=== PATIENT | female | born 1945 | race Hispanic/Latino ===

== ENCOUNTER 2017-07-02 06:44 | Day surgery (SDC) | payer MEDICARE, BC ==
[2017-06-29 09:02] VITALS: BMI 26.5
[2017-07-02] MEDS ORDERED: Hydrocortisone Sod Succ/PF 100 mg/2 ml Vial ONE (08:02)
--- NOTE | 2017-07-02 10:57 | OP ---
DATE OF PROCEDURE: 07/02/2017 PROCEDURE PERFORMED: Esophagogastroduodenoscopy with biopsy. PREOPERATIVE DIAGNOSIS: Chronic nausea and vomiting. PROCEDURE IN DETAIL: Informed consent was obtained from the patient. She was sedated with total int ravenous anesthesia. The bite block was placed and the endoscope was advanced easily to the second p ortion of the duodenum and retroflexion was performed in the stomach. The esophagus was normal. The GE junction was normal. The stomach had moderate erythematous gastritis in the antrum. Biopsies we re obtained to rule out H. pylori. The body and fundus of the stomach had a few small 4-5 mm polyps consistent with hyperplastic or fundic gland polyps. [employer] biopsies were obtained. The pyl orus was normal. Retroflexed views in the stomach were otherwise normal. The first and second porti ons of the duodenum were normal. Random biopsies were taken from the duodenum to rule out celiac dis ease. IMPRESSION: 1. Moderate erythematous gastritis in the antrum, biopsies taken to rule out Helicobacter pylori. 2. Few small benign appearing polyps in the body and fundus. Biopsies obtained. These are likely h yperplastic or fundic gland polyps, which should not require further intervention. 3. Otherwise normal esophagogastroduodenoscopy. Random duodenal biopsies taken to rule out celiac d isease. RECOMMENDATIONS: 1. Await histopathology. 2. Proton pump inhibitor daily. 3. Follow up in GI clinic in 4 weeks.
[2017-07-02] MEDS ORDERED: Propofol 200 MG/20 ML VIAL ONE (13:44)
== END 2017-07-02 09:53 | disposition home or self-care (01) ==
LOC: SDC 06:44
PROVIDERS: ATTEND Internal Medicine Gastroenterology
PROC: 0DB98ZX Excision of Duodenum, Via Natural or Artificial Opening Endoscopic, Diagnostic (ICD-10-PCS; principal; 2017-07-02)
PROC: 0DB68ZX Excision of Stomach, Via Natural or Artificial Opening Endoscopic, Diagnostic (ICD-10-PCS; 2017-07-02)
DX: K31.7 Polyp of stomach and duodenum (principal); K58.1 Irritable bowel syndrome with constipation; K21.9 Gastro-esophageal reflux disease without esophagitis; K22.4 Dyskinesia of esophagus; E11.9 Type 2 diabetes mellitus without complications; E78.00 Pure hypercholesterolemia, unspecified; F41.9 Anxiety disorder, unspecified; F32.9 Major depressive disorder, single episode, unspecified; I25.10 Atherosclerotic heart disease of native coronary artery without angina pectoris; I10 Essential (primary) hypertension; Z79.01 Long term (current) use of anticoagulants; Z79.02 Long term (current) use of antithrombotics/antiplatelets; Z79.82 Long term (current) use of aspirin; Z79.52 Long term (current) use of systemic steroids; Z79.899 Other long term (current) drug therapy; Z88.8 Allergy status to other drugs, medicaments and biological substances; Z88.7 Allergy status to serum and vaccine; Z98.51 Tubal ligation status; Z98.41 Cataract extraction status, right eye; Z98.42 Cataract extraction status, left eye; Z96.1 Presence of intraocular lens; Z95.1 Presence of aortocoronary bypass graft; Z95.5 Presence of coronary angioplasty implant and graft; Z90.49 Acquired absence of other specified parts of digestive tract; Z90.89 Acquired absence of other organs; Z90.711 Acquired absence of uterus with remaining cervical stump; Z98.890 Other specified postprocedural states
CPT/HCPCS: 88305; 88312; J1720; J2704

== ENCOUNTER 2017-09-05 16:40 | Outpatient (CLI) | payer MEDICARE, BC | END 2017-09-05 16:41 | disposition home or self-care (01) | LOC: BICRAD 16:40 | PROVIDERS: ATTEND Internal Medicine Rheumatology | DX: M05.79 Rheumatoid arthritis with rheumatoid factor of multiple sites without organ or systems involvement (principal) | CPT/HCPCS: 71046 ==

== ENCOUNTER 2018-01-02 15:54 | Outpatient (CLI) | payer MEDICARE, BC ==
--- NOTE | 2018-01-02 16:43 | RAD ---
CERVICAL SPINE FIVE VIEWS: 01/02/18 HISTORY: Head injury after fall. COMPARISON: None. FINDINGS: Lateral neutral, lateral flexion and lateral extension views of the cervical spine along with an open mouth and AP view are submitted. There are degenerative changes of the facets on the AP projection. No obvious malalignment. Limited e valuation of the odontoid process of the open mouth projection. Lateral masses of C1 and C2 do have a ppropriate articulations. Predental space is normal. There is no prevertebral soft tissue swelling. Cervical spine is adequately assessed from the C1 vert ebral body to the C7-T1 disc space on the lateral neutral projection. There is moderate loss of disc space height and osteophyte formation at C5-C6 and C6-C7. Mild straightening of the normal cervical l ordosis is felt to be positional. Upon extension and flexion, no abnormal motion of the cervical spin e. IMPRESSION: Degenerative changes of the cervical spine at C5-C6 and C6-C7. Further evaluation with CT or MRI as c linically warranted. POS: [facility]
== END 2018-01-02 15:55 | disposition home or self-care (01) ==
LOC: TBSIIMAG 15:54
PROVIDERS: ATTEND Surgery
DX: S09.90XA Unspecified injury of head, initial encounter (principal); M47.892 Other spondylosis, cervical region
CPT/HCPCS: 72050

== ENCOUNTER 2018-01-18 08:05 | Outpatient (CLI) | payer MEDICARE, BC ==
--- NOTE | 2018-01-18 14:40 | NM ---
RADIONUCLIDE GASTRIC EMPTYING SCAN: Date: 01/18/18 HISTORY: Nausea, vomiting, unspecified, epigastric pain, constipation. RADIOPHARMACEUTICAL: 2 mCi technetium-99m sulfur colloid administered orally in scrambled eggs. FINDINGS/IMPRESSION: There is 12% emptying of the ingested gastric contents at 1/2 hour, 80% emptying at 2 hours, 89% empt waqar at 3 hours, and 96% emptying at 4 hours. The calculated gastric emptying halftime measures 100 m inutes. POS: [facility]
== END 2018-01-18 08:06 | disposition home or self-care (01) ==
LOC: NM 08:05
PROVIDERS: ATTEND Internal Medicine Gastroenterology
DX: R11.2 Nausea with vomiting, unspecified (principal); R10.13 Epigastric pain; K59.00 Constipation, unspecified
CPT/HCPCS: 78264; A9541

== ENCOUNTER 2018-03-06 09:19 | Outpatient (CLI) | payer MEDICARE, BC ==
[2018-03-06] MEDS ORDERED: Iopamidol 370 76% 100 ML VIAL ONE (12:47)
--- NOTE | 2018-03-06 13:56 | CT ---
ABDOMEN CT WITH CONTRAST PELVIC CT WITH CONTRAST 03/06/18 HISTORY: Lower abdominal pain. Nausea and vomiting. Diarrhea. COMPARISON: 07/29/13. TECHNIQUE: Abdomen and pelvic CT performed with IV and oral contrast. Coronal reformatted images are submitted f or interpretation. FINDINGS: ABDOMEN CT: Lung bases demonstrate probable chronic change. There does appear to be a small right lower lobe nod ule measuring 8 mm. Heart size is normal. No pericardial fluid. The descending thoracic aorta and abd ominal aorta have a normal caliber. No periaortic fat stranding. Gallbladder is surgically absent. Portal vein is patent. Liver, spleen, and adrenal glands are unrema rkable. No gastrohepatic or retrocrural lymphadenopathy. Symmetric enhancement of the kidneys. Bilaterally, no obstructive uropathy. There is an essentially hypodense, irregular enhancing mass involving the head and uncinate process o f the pancreas measuring 2.9 x 3.5 x 3.2 cm. No definite peripancreatic or periportal lymphadenopathy . No mesenteric mass, lymphadenopathy, free air or free fluid. No evidence of bowel obstruction. Ileocecal junction is normal. The colon is unremarkable. Occasional diverticulum. No diverticulitis. PELVIC CT: The urinary bladder is unremarkable. the uterus is surgically absent. No pelvic mass, lymphadenopath y, free air or free fluid. No lytic or blastic lesions in the osseous structures. Lumbar fusion hardw are is noted. 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 Results of the study discussed with Dr. Machuca 03/06/18 at 11:25 a.m. POS: [facility]
== END 2018-03-06 09:20 | disposition home or self-care (01) ==
LOC: CT 09:19
PROVIDERS: ATTEND Internal Medicine Gastroenterology
DX: R10.13 Epigastric pain (principal); R11.2 Nausea with vomiting, unspecified; R63.4 Abnormal weight loss; D49.0 Neoplasm of unspecified behavior of digestive system
CPT/HCPCS: 74177; 82565

== ENCOUNTER 2018-03-08 08:35 | Outpatient (CLI) | payer MEDICARE, BC ==
--- NOTE | 2018-03-08 10:06 | CT ---
CT BRAIN NONCONTRAST: HISTORY: 73-year-old female with post-traumatic headache after fall. FINDINGS: There is no midline shift or any other mass effect. There is no evidence of acute intracranial hemor rhage, large cortical infarct, obstructive hydrocephalus, or extraaxial fluid collection. The calvar ium is intact. There is diffuse parenchymal volume loss. There are low attenuation areas in the whi te matter. These are nonspecific, but in a patient of this age, they are probably chronic ischemic w lita matter changes due to microvascular atherosclerosis. IMPRESSION: 1. No acute intracranial findings. 2. Involutional changes and chronic ischemic white matter changes. jn [] POS: [facility]
--- NOTE | 2018-03-08 10:20 | MRI ---
MRI CERVICAL SPINE NONCONTRAST : HISTORY: Neck injury and pain. FINDINGS: Vertebral body height and alignment are maintained. There is desiccation of all of the intervertebra l disks. Prominent discogenic end plates within the bone marrow. Associated with the posterior dura just to the right of midline at the T1-2 level is an oval smoothly marginated mass of decreased T1 and T2 signal measuring up to 1.0 cm length x 0.8 cm depth. It effa jaime the posterior thecal sac and contacts the posterior aspect of the spinal cord without significant compression. C2-3: Mild osteophytosis. Central canal and neural foramen are patent. C3-4: Disk space narrowing. Mild posterior osteophyte/disk complex. Circumferential degenerative c hanges with mild stenosis of the central canal. Mild right and moderate left foraminal stenosis. C4-5: Small posterior osteophyte/disk complex just to the right of midline, slightly effacing the th ecal sac. No significant compression of the spinal cord. Moderate right foraminal stenosis. Left n eural foramen is patent. C5-6: Disk space narrowing. Prominent posterior osteophyte/disk complex, flattening of the ventral aspect of the thecal sac and spinal cord by approximately 20%. No abnormal signal within the cord. Degenerative changes with moderate right and severe left foraminal stenoses. C6-7: Disk space narrowing. Prominent posterior osteophyte/disk complex. Circumferential degenerat kelly changes with severe stenosis of the central canal. No abnormal signal within the spinal cord. M oderate to severe right and moderate left foraminal stenoses. C7-T1: Mild osteophytosis. Central canal and neural foramen are patent. IMPRESSION: 1. Prominent multilevel degenerative changes of mid to lower cervical spine, including severe centra l canal and foraminal stenoses as detailed above. No evidence of myelomalacia. 2. Posterior dural or extradural mass of decreased MRI signal at the T1-2 level. Meningioma is favo red. Please consider CT of the thoracic spine for further density characterization of the mass and evaluat ion of other potential thoracic meningiomas. POS: [facility]
== END 2018-03-08 08:36 | disposition home or self-care (01) ==
LOC: TBSIIMAG 08:35
PROVIDERS: ATTEND Physician Assistant Surgical
DX: S06.9X0A Unspecified intracranial injury without loss of consciousness, initial encounter (principal); S16.1XXA Strain of muscle, fascia and tendon at neck level, initial encounter; M47.892 Other spondylosis, cervical region; M48.02 Spinal stenosis, cervical region; M99.81 Other biomechanical lesions of cervical region; G95.9 Disease of spinal cord, unspecified
CPT/HCPCS: 70450; 72141